=== PATIENT | male | born 1990 | race Caucasian/White ===

== ENCOUNTER 2018-10-24 19:55 | Emergency (ER) | payer MEDICAID ==
[~2018-10-24] VITALS: Ht 180.3 cm; Wt 104.5 kg
[~2018-10-24 19:55] MED LIST: ONDA8TAB9 PO; TADA20TA PO
[2018-10-24 20:01] VITALS: BP 162/96
[2018-10-24] MEDS ORDERED: AMOX500C2 PO (21:08)
== END 2018-10-24 21:24 | disposition home or self-care (01) ==
LOC: ER 19:56
DX: K04.7 Periapical abscess without sinus (principal)
CPT/HCPCS: 99283

== ENCOUNTER 2020-06-16 18:48 | Emergency (ER) | payer MEDICAID, OTHER ==
[~2020-06-16] VITALS: Ht 182.9 cm; Wt 114.0 kg
[2020-06-16 19:19] LABS: BASOPHILS # (AUTO) 0.1 X10'3 (0-0.2); BASOPHILS % (AUTO) 0.8 % (0-1); EOSINOPHILS # (AUTO) 0.4 X10'3 (0-0.9); EOSINOPHILS % (AUTO) 3.9 % (0-6); HEMATOCRIT 45.7 % (42.0-52.0); HEMOGLOBIN 15.7 g/dl (14.0-17.9); LYMPHOCYTES # (AUTO) 2.6 X10'3 (1.1-4.8); LYMPHOCYTES % (AUTO) 25.1 % (21-51); MEAN CORPUSCULAR HEMOGLOBIN 30.7 PG (27.0-31.0); MEAN CORPUSCULAR HGB CONC 34.3 g/dL (33.0-36.5); MEAN CORPUSCULAR VOLUME 89.7 FL (78-98); MEAN PLATELET VOLUME 8.5 FL (7.4-10.4); MONOCYTES # (AUTO) 0.7 X10'3 (0-0.9); MONOCYTES % (AUTO) 6.5 % (2-12); NEUTROPHILS # (AUTO) 6.6 X10'3 (1.8-7.7); NEUTROPHILS % (AUTO) 63.7 % (42-75); PLATELET COUNT 235 X10'3 (140-440); RED CELL DISTRIBUTION WIDTH 13.2 % (11.5-14.5); WHITE BLOOD COUNT 10.4 X10'3 (4.5-11.0)
[2020-06-16] MEDS ORDERED: ketorolac tromethamine 15mg/ml inj. IV ONE (19:25)
[2020-06-16] MEDS ORDERED: normal saline 1000ML IV soln IVB ONE (19:25)
[2020-06-16 19:28] LABS: ALANINE AMINOTRANSFERASE 77 U/L (12-78); ALBUMIN 3.8 G/DL (3.4-5.0); ALKALINE PHOSPHATASE 52 IU/L (46-116); ANION GAP 7 (8-16); ASPARTATE AMINO TRANSFERASE 33 U/L (10-37); BILIRUBIN,TOTAL 0.4 MG/DL (0.1-1.0); BLOOD UREA NITROGEN 15 MG/DL (7-18); BUN/CREATININE RATIO 15.3 (5.4-32.0); CALCIUM 9.2 MG/DL (8.5-10.1); CHLORIDE 105 MMOL/L (99-107); CREATININE 0.98 MG/DL (0.60-1.10); GLUCOSE 93 MG/DL (70-104); LIPASE 224 U/L (73-393); POTASSIUM 4.3 MMOL/L (3.5-5.1); SODIUM 140 MMOL/L (135-145); TOTAL CARBON DIOXIDE 28.4 MMOL/L (24-32); TOTAL PROTEIN 7.6 G/DL (6.4-8.2); eGFR 89 ML/MIN
[2020-06-16 19:30] VITALS: BP 147/91
[2020-06-16 19:33] LABS: CLARITY,URINE CLOUDY (Clear); COLOR,URINE YELLOW (Yellow); GLUCOSE, URINE NEGATIVE (Neg); KETONES,URINE NEGATIVE (Neg); LEUKOCYTE ESTERASE ,URINE NEGATIVE (Neg); NITRITES, URINE NEGATIVE (Neg); OCCULT BLOOD,URINE LARGE (Neg); PROTEIN,URINE 100 mg/dl (Neg)
[2020-06-16] MEDS ORDERED: normal saline 1000ml 1,000 ML IV ONE (19:40)
[2020-06-16 19:42] LABS: UA COLLECTION TYPE VOIDED
[2020-06-16 19:43] LABS: BACTERIA,URINE FEW /HPF (Neg); RBC,URINE 50-100 /HPF (0-2); SQUAMOUS EPITHELIAL CELL,UR FEW /LPF (FEW); WBC,URINE 0-4 /HPF (0-4)
[2020-06-16] MEDS ORDERED: NO HOME MEDS (20:15)
[2020-06-16] MEDS ORDERED: ondansetron/PF 4mg/2ml inj IV ONE (20:55)
[2020-06-16] MEDS ORDERED: morphine 4 MG/ML inj SYRINge IV ONE (20:55)
[2020-06-16] MEDS ORDERED: FLO0.4C PO (21:04)
[2020-06-16] MEDS ORDERED: HYDR-4353 PO (21:04)
[2020-06-16] MEDS ORDERED: ONDA4TAB6 PO (21:04)
== END 2020-06-16 21:15 | disposition home or self-care (01) ==
LOC: ER 18:48
DX: N20.9 Urinary calculus, unspecified (principal); N20.0 Calculus of kidney; F32.9 Major depressive disorder, single episode, unspecified; R10.9 Unspecified abdominal pain; R31.9 Hematuria, unspecified; Z79.899 Other long term (current) drug therapy
CPT/HCPCS: 36415; 74018; 74176; 80053; 81001; 83690; 85025; 96374; 96375; 99285; J1885; J2270; J2405; J7030

== ENCOUNTER 2020-06-19 19:39 | Inpatient (IN) | payer MEDICAID, OTHER ==
[~2020-06-19] VITALS: Ht 182.9 cm; Wt 109.1 kg
[~2020-06-19 19:39] MED LIST changes: +FLO0.4C PO; +HYDR-4353 PO; +NO HOME MEDS; +ONDA4TAB6 PO; -ONDA8TAB9 PO; -TADA20TA PO
[2020-06-19 19:57] LABS: CLARITY,URINE SLIGHTLY CLOUDY (Clear); COLOR,URINE YELLOW (Yellow); GLUCOSE, URINE NEGATIVE (Neg); KETONES,URINE NEGATIVE (Neg); LEUKOCYTE ESTERASE ,URINE TRACE (Neg); NITRITES, URINE NEGATIVE (Neg); OCCULT BLOOD,URINE LARGE (Neg); PROTEIN,URINE TRACE mg/dl (Neg)
[2020-06-19 20:05] LABS: UA COLLECTION TYPE CLN CATCH MIDSTREAM
[2020-06-19 20:06] LABS: BACTERIA,URINE 2+ /HPF (Neg); SQUAMOUS EPITHELIAL CELL,UR MODERATE /LPF (FEW); WBC,URINE 30-50 /HPF (0-4)
[2020-06-19] MEDS ORDERED: ondansetron/PF 4mg/2ml inj IV ONE (22:00)
[2020-06-19] MEDS ORDERED: normal saline 1000ML IV soln IVB ONE (22:00)
[2020-06-19] MEDS ORDERED: morphine 5 MG/ML injection IV ONE (22:00)
[2020-06-19] MEDS ORDERED: morphine 10mg/ml inj. IV ONE (22:10)
[2020-06-19 22:38] LABS: BASOPHILS % (AUTO) 0.2 % (0-1); EOSINOPHILS # (AUTO) 0.1 X10'3 (0-0.9); EOSINOPHILS % (AUTO) 1.1 % (0-6); HEMATOCRIT 44.1 % (42.0-52.0); HEMOGLOBIN 15.1 g/dl (14.0-17.9); LYMPHOCYTES # (AUTO) 1.2 X10'3 (1.1-4.8); LYMPHOCYTES % (AUTO) 8.7 % (21-51); MEAN CORPUSCULAR HEMOGLOBIN 30.3 PG (27.0-31.0); MEAN CORPUSCULAR HGB CONC 34.3 g/dL (33.0-36.5); MEAN CORPUSCULAR VOLUME 88.5 FL (78-98); MEAN PLATELET VOLUME 8.3 FL (7.4-10.4); MONOCYTES # (AUTO) 1.2 X10'3 (0-0.9); MONOCYTES % (AUTO) 9.1 % (2-12); NEUTROPHILS # (AUTO) 10.8 X10'3 (1.8-7.7); NEUTROPHILS % (AUTO) 80.9 % (42-75); PLATELET COUNT 242 X10'3 (140-440); RED BLOOD COUNT 4.99 X10'6 (4.70-6.10); WHITE BLOOD COUNT 13.3 X10'3 (4.5-11.0)
[2020-06-19 22:53] LABS: ALANINE AMINOTRANSFERASE 50 U/L (12-78); ALBUMIN 3.7 G/DL (3.4-5.0); ALBUMIN/GLOBULIN RATIO 0.9 (1.1-1.5); ALKALINE PHOSPHATASE 48 IU/L (46-116); ANION GAP 8 (8-16); ASPARTATE AMINO TRANSFERASE 23 U/L (10-37); BILIRUBIN,TOTAL 0.6 MG/DL (0.1-1.0); BLOOD UREA NITROGEN 20 MG/DL (7-18); BUN/CREATININE RATIO 16.8 (5.4-32.0); CALCIUM 8.9 MG/DL (8.5-10.1); CHLORIDE 101 MMOL/L (99-107); CREATININE 1.19 MG/DL (0.60-1.10); GLUCOSE 109 MG/DL (70-104); POTASSIUM 4.2 MMOL/L (3.5-5.1); SODIUM 138 MMOL/L (135-145); TOTAL CARBON DIOXIDE 29.2 MMOL/L (24-32); eGFR 71 ML/MIN
[2020-06-19] MEDS ORDERED: CefTRIAXone 2gm/D5W 50ml 50 ML IV ONE (23:30)
[2020-06-19] MEDS ORDERED: fentaNYL/PF 50MCG/1 ML 2ML syringe IV ONE (23:35)
[2020-06-19] MEDS ORDERED: CefTRIAXone inj 2,000 MG in normal saline 100ml IV soln 100 ML IV ONE (23:40)
[2020-06-20] VITALS (14 sets, daily range): BP systolic 108–146; BP diastolic 64–89
[2020-06-20] MEDS ORDERED: ondansetron/PF 4mg/2ml inj IV PRN ×2 (01:40→22:05)
[2020-06-20] MEDS ORDERED: morphine 2 MG/ML inj. syringe IV PRN ×2 (01:40→22:05)
[2020-06-20] MEDS ORDERED: HYDROcodone/acetaminophen 5mg/325mg tablet PO PRN (01:40)
[2020-06-20] MEDS ORDERED: magnesium hydroxide 30ml (MOM) UD suspension PO PRN (01:40)
[2020-06-20] MEDS ORDERED: mag hydrox/Alum hydrox/simeth 30ml oral suspension PO PRN (01:40)
[2020-06-20] MEDS ORDERED: acetaminophen 325mg tablet PO PRN ×2 (01:40)
[2020-06-20] MEDS: normal saline 1000ml 1,000 ML IV SCH ×3 (01:46→21:36)
[2020-06-20] MEDS: morphine 2 MG/ML inj. syringe IV PRN ×4 (04:46→18:09)
--- NOTE | 2020-06-20 06:05 | NUR ---
received report from aleah ornelas
--- NOTE | 2020-06-20 06:27 | NUR ---
Reported off to Edyta FOSTER. Patient is resting with relaxed and unlabored respirations on room air. In no apparent distress. Call light and items of frequent use within reach.
[2020-06-20] MEDS: tamsulosin 0.4mg capsule PO SCH (07:03)
[2020-06-20] MEDS: HYDROcodone/acetaminophen 10/325mg tab PO PRN ×3 (07:03→20:50)
[2020-06-20] MEDS ORDERED: potassium Cl 20 mEq SR tablet PO PRN ×2 (09:25)
[2020-06-20] MEDS: K and/or MAG REPLACEMENT MC SCH ×2 (09:25→20:00)
[2020-06-20] MEDS ORDERED: magnesium Cl slow-release 64mg tablet PO PRN (09:25)
[2020-06-20] MEDS ORDERED: magnesium 4gm in 100ml NS 100 ML IV PRN (09:25)
[2020-06-20] MEDS ORDERED: potassium CL 10mEq/100ml bag 100 ML IV PRN (09:25)
--- NOTE | 2020-06-20 18:20 | NUR ---
Patient in room ORTHO 4009. I have received report from Edyta FOSTER and had the opportunity to ask questions and assume patient care.
--- NOTE | 2020-06-20 18:22 | NUR ---
gave report to aleah gallagher
[2020-06-20] MEDS ORDERED: ringers solution, lacted 1,000 ML IV ONE (20:24)
[2020-06-20] MEDS ORDERED: famotidine 20mg tablet PO ONE ×2 (20:55→22:46)
[2020-06-20] MEDS ORDERED: sevoflurane 250ml liquid IH ONE (21:24)
[2020-06-20] MEDS ORDERED: famotidine/PF 10 mg/ml inj IV ONE (21:27)
[2020-06-20] MEDS ORDERED: midazolam 2 mg/2 ml injection ONE (21:28)
[2020-06-20] MEDS ORDERED: phenazopyridine 100mg tablet PO PRN (21:30)
[2020-06-20] MEDS ORDERED: fentaNYL/PF 50MCG/1 ML 2ML syringe ONE (21:32)
[2020-06-20] MEDS ORDERED: dexamethasone sod phosphate 4mg/ml inj. ONE (21:48)
[2020-06-20] MEDS ORDERED: ondansetron/PF 4mg/2ml inj ONE (21:49)
[2020-06-20] MEDS ORDERED: LIDOcaine 2% (20mg/ml) 5ml vial ONE (21:49)
[2020-06-20] MEDS ORDERED: propofol inj 20 ML IV ONE (21:49)
--- NOTE | 2020-06-20 21:55 | NUR ---
Pt to OR
[2020-06-20] MEDS ORDERED: ringers solution, lacted 1,000 ML IV SCH (22:01)
[2020-06-20] MEDS ORDERED: acetaminophen 1,000mg/100ml IV 100 ML IV PRN (22:05)
[2020-06-20] MEDS ORDERED: hydrALAZINE 20mg/ml inj. IV PRN (22:05)
[2020-06-20] MEDS ORDERED: HYDROmorphone inj. 0.5 MG/0.5 ML DISP.SYRIN IV PRN ×2 (22:05)
[2020-06-20] MEDS ORDERED: labetalol 20mg/4ml (5mg/ml) syringe IV PRN (22:05)
[2020-06-20] MEDS ORDERED: meperidine/PF 25mg/ml syringe IV PRN (22:05)
[2020-06-20] MEDS ORDERED: proCHLORperazine 10 MG/2 ml inj IV PRN (22:05)
[2020-06-20] MEDS ORDERED: morphine 4 MG/ML inj SYRINge IV PRN (22:05)
--- NOTE | 2020-06-20 22:08 | NUR ---
Received from OR via , accompanied by Anesthesiologist DR DYE and report given by Anesthesiolgist. PT IS SLEEPING WITH ORAL AIRWAY IN PLACE, NOT MOVING EXT, SKIN WARM AND DRY, SCD'S ON PT, PIV LEFT AC WITH LR 100ML/HR, NO C/O PAIN, VSS. MD UPDATED PT'S GIRLFRIEND WITH STATUS.
--- NOTE | 2020-06-20 22:18 | NUR ---
REMOVED ORAL AIRWAY. SAT 100% ON 10L MASK.
[2020-06-20] MEDS ORDERED: iohexol 300 MG/1 ML 50ml polymer ONE (22:45)
--- NOTE | 2020-06-20 22:50 | NUR ---
Patient in room ORTHO 4009. I have received report from Annette FOSTER in PACU and had the opportunity to ask questions and assume patient care.
--- NOTE | 2020-06-20 22:58 | NUR ---
Report called to receiving nurse. Transferred via [facility]ED Belongings . Special Issues communicated to receiving nurse DAKOTA FOSTER. PT IS AWAKE, ALERT, MOVES EXT X 4, SKIN WARM AND PINK, NO C/O PAIN, VSS, NEW PIV PLACED IN RIGHT HAND 20G, REMOVED OLD PIV IN LEFT AC. PT MEETS DISCHARGE CRITERIA.
[2020-06-20] MEDS ORDERED: CefTRIAXone/D5W-Rocephin 1gm 50 ML IV SCH (23:00)
[2020-06-20 23:05] LABS: CLARITY,URINE CLOUDY (Clear); COLOR,URINE RED (Yellow); GLUCOSE, URINE NEGATIVE (Neg); KETONES,URINE 15 mg/dl (Neg); LEUKOCYTE ESTERASE ,URINE SMALL (Neg); NITRITES, URINE NEGATIVE (Neg); OCCULT BLOOD,URINE LARGE (Neg); PH,URINE 5.5 (4.8-8.0); PROTEIN,URINE NEGATIVE (Neg); UROBILINOGEN,URINE 0.2 E.U/dL (0.2-1.0)
[2020-06-20 23:07] LABS: UA COLLECTION TYPE NON-SPECIFIED
[2020-06-20 23:10] LABS: BACTERIA,URINE 2+ /HPF (Neg); RBC,URINE 50-100 /HPF (0-2)
[2020-06-20 23:11] LABS: SQUAMOUS EPITHELIAL CELL,UR FEW /LPF (FEW)
[2020-06-21] VITALS (7 sets, daily range): BP systolic 118–143; BP diastolic 69–83
--- NOTE | 2020-06-21 02:33 | NUR ---
Patient in room ORTHO 4009. I have received report from Mely FOSTER and had the opportunity to ask questions and assume patient care.
--- NOTE | 2020-06-21 02:40 | NUR ---
Problems reprioritized. Patient report given, questions answered & plan of care reviewed with Paul Martins RN.
[2020-06-21 06:23] LABS: BASOPHILS % (AUTO) 0.3 % (0-1); EOSINOPHILS % (AUTO) 0 % (0-6); HEMOGLOBIN 15.2 g/dl (14.0-17.9); LYMPHOCYTES # (AUTO) 0.7 X10'3 (1.1-4.8); LYMPHOCYTES % (AUTO) 9.5 % (21-51); MEAN CORPUSCULAR HEMOGLOBIN 30.4 PG (27.0-31.0); MEAN CORPUSCULAR HGB CONC 34.5 g/dL (33.0-36.5); MEAN CORPUSCULAR VOLUME 88.2 FL (78-98); MEAN PLATELET VOLUME 8.6 FL (7.4-10.4); MONOCYTES # (AUTO) 0.1 X10'3 (0-0.9); MONOCYTES % (AUTO) 1.9 % (2-12); NEUTROPHILS # (AUTO) 6.5 X10'3 (1.8-7.7); NEUTROPHILS % (AUTO) 88.3 % (42-75); PLATELET COUNT 248 X10'3 (140-440); RED BLOOD COUNT 4.99 X10'6 (4.70-6.10); RED CELL DISTRIBUTION WIDTH 12.9 % (11.5-14.5); WHITE BLOOD COUNT 7.3 X10'3 (4.5-11.0)
[2020-06-21 06:35] LABS: ALBUMIN 3.3 G/DL (3.4-5.0); ANION GAP 5 (8-16); BLOOD UREA NITROGEN 14 MG/DL (7-18); BUN/CREATININE RATIO 12.3 (5.4-32.0); CHLORIDE 103 MMOL/L (99-107); CREATININE 1.14 MG/DL (0.60-1.10); GLUCOSE 141 MG/DL (70-104); SODIUM 138 MMOL/L (135-145); TOTAL CARBON DIOXIDE 29.8 MMOL/L (24-32); eGFR 75 ML/MIN
--- NOTE | 2020-06-21 06:48 | NUR ---
Problems reprioritized. Patient report given, questions answered & plan of care reviewed with Shameka FOSTER.
[2020-06-21] MEDS: normal saline 1000ml 1,000 ML IV SCH (07:36)
[2020-06-21] MEDS: K and/or MAG REPLACEMENT MC SCH (08:00)
[2020-06-21] MEDS: tamsulosin 0.4mg capsule PO SCH (09:34)
== END 2020-06-21 13:30 | disposition home or self-care (01) | DRG 463 ==
LOC: ER 19:40 → ED HOLD 06-20 01:36 → ORTHO 4S 06-20 04:30 → PACU 06-20 21:07 → ORTHO 4S 06-20 23:16
PROVIDERS: ADMIT Internal Medicine; ATTEND Family Medicine
PROC: BT1F1ZZ Fluoroscopy of Left Kidney, Ureter and Bladder using Low Osmolar Contrast (ICD-10-PCS; 2020-06-20)
PROC: 0T778DZ Dilation of Left Ureter with Intraluminal Device, Via Natural or Artificial Opening Endoscopic (ICD-10-PCS; principal; 2020-06-20 21:24)
DX: N13.6 Pyonephrosis (principal); F17.210 Nicotine dependence, cigarettes, uncomplicated; E66.9 Obesity, unspecified; F32.9 Major depressive disorder, single episode, unspecified; Z84.1 Family history of disorders of kidney and ureter; Z87.442 Personal history of urinary calculi; Z79.899 Other long term (current) drug therapy; Z68.32 Body mass index [BMI] 32.0-32.9, adult
CPT/HCPCS: 36415; 76000; 80048; 80053; 81001; 83735; 85025; 87081; 87088; 99285; A4618; C1758; C1769; C2617; G0378; J0696; J1100; J2001; J2250; J2270; J2405; J2704; J3010; J3490; J7030; Q9967